=== PATIENT | female | born 2000 | race Caucasian/White ===

== ENCOUNTER 2019-06-14 23:25 | Emergency (ER) | payer SELFPAY ==
[~2019-06-14] VITALS: Ht 172.7 cm; Wt 109.0 kg
[2019-06-15 04:06] LABS: CLARITY URINE CLEAR (CLEAR); COLOR URINE YELLOW (YELLOW); KETONES URINE NEGATIVE (NEGATIVE); LEUKOCYTE ESTERASE URINE TRACE (NEGATIVE); NITRITE URINE NEGATIVE (NEGATIVE); OCCULT BLOOD URINE 2+ (NEGATIVE); PH URINE 6.5 (4.5-8.0); PROTEIN URINE NEGATIVE (NEGATIVE); SPECIFIC GRAVITY URINE 1.018 (1.005-1.030); UROBILINOGEN URINE 0.2 E.U./dL (0.2-1.0)
[2019-06-15 05:45] VITALS: BP 119/75
== END 2019-06-15 05:45 | disposition home or self-care (01) ==
LOC: ER 23:25
DX: F41.9 Anxiety disorder, unspecified (principal); R42 Dizziness and giddiness; J30.9 Allergic rhinitis, unspecified
CPT/HCPCS: 71045; 81003; 81025; 99284

== ENCOUNTER 2019-08-17 16:55 | Emergency (ER) | payer SELFPAY ==
[~2019-08-17] VITALS: Ht 170.2 cm; Wt 120.0 kg
[2019-08-17 17:44] VITALS: BP 155/98
[2019-08-17] MEDS ORDERED: LORAZEPAM 0.5MG TABLET PO ONE (17:45)
== END 2019-08-17 18:08 | disposition home or self-care (01) ==
LOC: ER 16:55
DX: F41.9 Anxiety disorder, unspecified (principal)
CPT/HCPCS: 99283

== ENCOUNTER 2019-08-23 19:58 | Emergency (ER) | payer SELFPAY ==
[~2019-08-23] VITALS: Ht 170.2 cm; Wt 111.0 kg
[2019-08-23 20:02] VITALS: BP 145/80
[2019-08-23] MEDS ORDERED: LORAZEPAM 0.5MG TABLET PO ONE (21:00)
== END 2019-08-23 21:29 | disposition home or self-care (01) ==
LOC: ER 19:58
DX: F41.9 Anxiety disorder, unspecified (principal); R44.3 Hallucinations, unspecified; R06.02 Shortness of breath
CPT/HCPCS: 99283

== ENCOUNTER 2020-02-04 18:41 | Emergency (ER) | payer MEDICAID ==
[~2020-02-04] VITALS: Ht 170.2 cm; Wt 109.0 kg
[2020-02-04] MEDS ORDERED: IBUPROFEN 400MG TABLET PO ONE (19:15)
[2020-02-04] MEDS ORDERED: HYDROCODONE/ACETAMINOPHEN 5/325MG TABLET PO ONE (19:15)
[2020-02-04 20:00] VITALS: BP 116/70
== END 2020-02-04 20:26 | disposition home or self-care (01) ==
LOC: ER 18:41
DX: S83.91XA Sprain of unspecified site of right knee, initial encounter (principal); F41.9 Anxiety disorder, unspecified; W01.0XXA Fall on same level from slipping, tripping and stumbling without subsequent striking against object, initial encounter; Y93.89 Activity, other specified; Y92.018 Other place in single-family (private) house as the place of occurrence of the external cause
CPT/HCPCS: 29505; 73560; 99283; L1830

== ENCOUNTER 2020-11-13 15:05 | Emergency (ER) | payer MEDICAID ==
[~2020-11-13] VITALS: Ht 167.6 cm; Wt 118.0 kg
[2020-11-13] MEDS ORDERED: LORA-250 MT (17:26)
[2020-11-13 18:04] VITALS: BP 156/67
== END 2020-11-13 18:05 | disposition home or self-care (01) ==
LOC: ER 15:05
DX: F41.9 Anxiety disorder, unspecified (principal)
CPT/HCPCS: 99283

== ENCOUNTER 2020-11-23 02:57 | Emergency (ER) | payer MEDICAID ==
[~2020-11-23] VITALS: Ht 170.2 cm; Wt 114.0 kg
[~2020-11-23 02:57] MED LIST: LORA-250 MT
[2020-11-23 03:15] VITALS: BP 139/70
[2020-11-23] MEDS ORDERED: LORAZEPAM 1MG TABLET PO ONE (03:15)
== END 2020-11-23 03:30 | disposition home or self-care (01) ==
LOC: ER 02:57
DX: F41.0 Panic disorder [episodic paroxysmal anxiety] (principal); F41.9 Anxiety disorder, unspecified
CPT/HCPCS: 99284

== ENCOUNTER 2021-12-14 17:34 | Emergency (ER) | payer MEDICAID ==
[~2021-12-14] VITALS: Ht 167.6 cm; Wt 122.0 kg
[2021-12-14] MEDS ORDERED: AMOX1TAB16 MT (19:46)
[2021-12-14 21:00] VITALS: BP 111/75
== END 2021-12-14 21:00 | disposition home or self-care (01) ==
LOC: ER 17:34
DX: J32.9 Chronic sinusitis, unspecified (principal); B96.89 Other specified bacterial agents as the cause of diseases classified elsewhere; Z20.822 Contact with and (suspected) exposure to COVID-19
CPT/HCPCS: 87426; 99283; C9803

== ENCOUNTER 2023-12-21 06:35 | Emergency (ER) | payer MEDICAID ==
[~2023-12-21] VITALS: Ht 172.7 cm; Wt 89.0 kg
[~2023-12-21 06:35] MED LIST changes: +AMOX1TAB16 MT
[2023-12-21 07:08] VITALS: TEMP 98; O2SAT 98
[2023-12-21 07:56] LABS: HEMATOCRIT. 30.1 % (36.0-48.0); MEAN CORPUSCULAR HEMOGLOBIN 20.1 pg (28.0-32.0); MEAN CORPUSCULAR HGB CONC 30.1 g/dL (31.0-37.0); MEAN PLATELET VOLUME 7.4 fl (7.4-10.4); PLATELET 515 x1000/uL (130-400); RED BLOOD CELL COUNT 4.49 mill/uL (4.2-5.4); RED CELL DISTRIBUTION WIDTH 17.8 % (11.6-14.6); WHITE BLOOD COUNT 13.7 x1000/uL (4.5-11.0)
[2023-12-21 08:00] LABS: CHLORIDE 105 mEq/L (98-107); POTASSIUM 3.9 mEq/L (3.5-5.1); SODIUM 137 mEq/L (136-145)
[2023-12-21 08:01] LABS: CALCIUM 9.5 mg/dL (8.7-10.4); CARBON DIOXIDE 19 mEq/L (21-32)
[2023-12-21 08:02] LABS: DIFFERENTIAL COMMENT 1
[2023-12-21 08:06] LABS: CREATININE 0.7 mg/dL (0.6-1.0); GLUCOSE 149 mg/dL (70-105); UREA NITROGEN BLOOD 8 mg/dL (9-23)
[2023-12-21 08:10] LABS: HCG SCREEN NEGATIVE
[2023-12-21] MEDS: SODIUM CHLORIDE 0.9% 1,000 ML IV ONE (08:18)
[2023-12-21 08:53] LABS: ANISOCYTOSIS 1+; MICROCYTOSIS 2+; PLATELET ESTIMATE INCREASED
[2023-12-21] MEDS ORDERED: ONDA4TAB50 PO (09:05)
[2023-12-21] MEDS ORDERED: TOPUD PO (09:05)
[2023-12-21] MEDS: ONDANSETRON HCL 4MG/2ML INJ IV ONE (09:16)
[2023-12-21 10:00] VITALS: BP 127/64; PULSE 66; RESP 14
== END 2023-12-21 10:03 | disposition home or self-care (01) ==
LOC: ER 06:35
DX: R11.2 Nausea with vomiting, unspecified (principal); F41.9 Anxiety disorder, unspecified
CPT/HCPCS: 99283; 96374; 96361; 80048; 84703; 85025; 36415; J2405; J7030

== ENCOUNTER 2024-01-08 06:29 | Emergency (ER) | payer MEDICAID ==
[~2024-01-08] VITALS: Ht 170.2 cm; Wt 87.0 kg
[~2024-01-08 06:29] MED LIST changes: +ONDA4TAB50 PO; +TOPUD PO
[2024-01-08 06:39] VITALS: BP 127/46; PULSE 72; RESP 20; TEMP 98.3; O2SAT 100
[2024-01-08] MEDS: ONDANSETRON 4MG ODT PO NR (06:53)
== END 2024-01-08 06:57 | disposition left against medical advice (07) ==
LOC: ER 06:29
DX: R11.2 Nausea with vomiting, unspecified (principal); Z53.21 Procedure and treatment not carried out due to patient leaving prior to being seen by health care provider
CPT/HCPCS: Q0162

== ENCOUNTER 2024-06-08 08:25 | Emergency (ER) | payer MEDICAID ==
[~2024-06-08] VITALS: Ht 172.7 cm; Wt 81.6 kg
[2024-06-08 08:27] VITALS: O2SAT 99
[2024-06-08 08:35] VITALS: BP 118/49; PULSE 57; RESP 16; TEMP 98.2; O2SAT 99
== END 2024-06-08 09:20 | disposition left against medical advice (07) ==
LOC: ER 08:25
DX: R11.10 Vomiting, unspecified (principal); Z53.21 Procedure and treatment not carried out due to patient leaving prior to being seen by health care provider

== ENCOUNTER 2024-06-08 23:41 | Emergency (ER) | payer MEDICAID ==
[~2024-06-08] VITALS: Ht 167.6 cm; Wt 73.0 kg
[2024-06-08 23:44] VITALS: BP 147/57; PULSE 63; RESP 16; TEMP 98.7; O2SAT 98
[2024-06-08] MEDS ORDERED: ACETAMINOPHEN 1000MG/100ML 100 ML IV ONE (23:45)
[2024-06-08] MEDS ORDERED: SODIUM CHLORIDE 0.9% 1,000 ML IV ONE (23:45)
[2024-06-08] MEDS ORDERED: ONDANSETRON HCL 4MG/2ML INJ IV STA (23:45)
[2024-06-09] MEDS: ONDANSETRON 4MG ODT PO NR (01:20)
== END 2024-06-09 01:30 | disposition left against medical advice (07) ==
LOC: ER 23:55
DX: R10.10 Upper abdominal pain, unspecified (principal); R11.2 Nausea with vomiting, unspecified; F41.9 Anxiety disorder, unspecified; F32.A Depression, unspecified
CPT/HCPCS: 99283; J7030; Q0162; J0131